=== PATIENT | female | born 1975 | race African-American/Black ===

== ENCOUNTER 2017-09-29 10:33 | Emergency (ER) | payer OTHER ==
[~2017-09-29] VITALS: Ht 165.1 cm; Wt 72.6 kg
[2017-09-29 10:39] VITALS: BP_SYST 141
[2017-09-29 12:47] LABS: CALCIUM 8.5 mg/dL (8.4-11.0); CREATININE 0.83 mg/dL (0.55-1.30); POTASSIUM 3.7 mmol/L (3.5-5.1)
[2017-09-29 14:20] VITALS: BP_SYST 141
== END 2017-09-29 14:20 | disposition home or self-care (01) ==
LOC: SED 10:33
DX: E11.649 Type 2 diabetes mellitus with hypoglycemia without coma (principal); R03.0 Elevated blood-pressure reading, without diagnosis of hypertension; Z88.8 Allergy status to other drugs, medicaments and biological substances; Z91.013 Allergy to seafood
CPT/HCPCS: 36415; 80048; 99283